=== PATIENT | male | born 2000 | race African-American/Black ===

== ENCOUNTER 2020-08-14 02:53 | Emergency (ER) | payer SELFPAY ==
[~2020-08-14] VITALS: Ht 172.7 cm; Wt 93.0 kg
[2020-08-14] MEDS ORDERED: KEFLEX500 M1 PO (03:29)
[2020-08-14 03:43] VITALS: BP 115/76
== END 2020-08-14 03:41 | disposition home or self-care (01) | DRG 607 ==
LOC: ED 02:53
DX: L73.9 Follicular disorder, unspecified (principal)